=== PATIENT | female | born 1970 | race Caucasian/White ===

== ENCOUNTER 2021-02-07 13:42 | Inpatient (IN) | payer BC, OTHER ==
[~2021-02-07] VITALS: Ht 175.3 cm; Wt 134.0 kg
[2021-02-07] MEDS ORDERED: KETOROLAC 30 MG/ML VIAL IVP STA (14:25)
[2021-02-07] MEDS ORDERED: fentaNYL INJ 100 MCG/2 ML AMP IVP STA (14:26)
[2021-02-07 14:30] LABS: HEMATOCRIT 41 % (35-52); HEMOGLOBIN 14.4 g/dL (11.5-16.0); MEAN CORPUSCULAR HEMOGLOBIN 30 pg (25-34); MEAN CORPUSCULAR HGB CONC 35 g/dL (32-36); MEAN CORPUSCULAR VOLUME 86 fL (80-99); MEAN PLATELET VOLUME 9.7 fL (9.0-12.2); PLATELET COUNT 220 10^3/uL (130-400); WHITE BLOOD COUNT 10.9 10^3/uL (4.3-11.0)
[2021-02-07 14:31] LABS: BASOPHILS % (AUTO) 0 % (0-10); EOSINOPHILS % (AUTO) 0 % (0-10); LYMPHOCYTES % (AUTO) 9 % (12-44); MONOCYTES # (AUTO) 0.4 X 10^3 (0.0-1.0); MONOCYTES % (AUTO) 4 % (0-12); NEUTROPHILS # (AUTO) 9.4 X 10^3 (1.8-7.8); NEUTROPHILS % (AUTO) 86 % (42-75)
[2021-02-07] MEDS ORDERED: ONDANSETRON 4 MG/2 ML (SDV) Z0FRAN ONE (14:41)
[2021-02-07 14:42] LABS: ALBUMIN 4.3 GM/DL (3.2-4.5); BILIRUBIN,TOTAL 0.5 MG/DL (0.1-1.0); CREATININE SERUM 0.67 MG/DL (0.60-1.30); POTASSIUM 3.7 MMOL/L (3.6-5.0); TOTAL PROTEIN 7.8 GM/DL (6.4-8.2)
--- NOTE | 2021-02-07 14:46 | Diagnostic Imaging Report ---
CT ABDOMEN/PELVIS WO TECHNIQUE: Unenhanced CT imaging of the abdomen and pelvis was performed. 2-D reformats are created and submitted for interpretation. Automatic exposure controls were utilized to optimize patient dose. INDICATION: Left flank pain. COMPARISON: None available. FINDINGS: Evaluation of the abdominal viscera is mildly limited without contrast. Lower chest: The lung bases are clear. No pericardial or pleural effusion. Peritoneum: No free intraperitoneal air or fluid. Liver and biliary system: Unenhanced liver is normal. The gallbladder is normal. No biliary duct dilation. Spleen and Pancreas: Spleen is normal. Unenhanced pancreas is grossly normal. Adrenals: Low-attenuation nodule in the left adrenal gland is most likely a benign adenoma. Right adrenal gland is normal. tract: No renal or ureteral calculi. No obstructive uropathy. Urinary bladder is decompressed, limiting assessment. There is a very large cystic mass arising from the midline just above the uterus and extends cranially into the abdominal cavity. This mass measures 22 x 14 x 12 cm, and there are no internal septations or mural nodules appreciated. There is a likely ovarian tissue in both adnexa. Uterus is normal in appearance. GI tract: Stomach is decompressed. No bowel obstruction. Sigmoid colon diverticulosis without diverticulitis. Normal appendix. Vasculature and Lymph nodes: Normal caliber aorta. No abdominal or pelvic lymphadenopathy. Musculoskeletal: No concerning osseous lesion. IMPRESSION: 1. No urinary tract calculi or obstructive uropathy. 2. 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 Gynecology consultation is advised for management options. Dictated by: Dictated on workstation # [id number]
[2021-02-07 14:51] LABS: BILIRUBIN,URINE NEGATIVE (NEGATIVE); CLARITY,URINE CLOUDY; GLUCOSE, URINE (UA) NEGATIVE (NEGATIVE); KETONES,URINE TRACE (NEGATIVE); LEUKOCYTE ESTERASE ,URINE TRACE (NEGATIVE); NITRITE,URINE NEGATIVE (NEGATIVE); PROTEIN,URINE TRACE (NEGATIVE)
[2021-02-07 15:02] LABS: AMPHETAMINE SCREEN, URINE NEGATIVE (NEGATIVE); BARBITURATE SCREEN URINE NEGATIVE (NEGATIVE); BENZODIAZEPINES SCREEN URINE NEGATIVE (NEGATIVE); CANNABINOID SCREEN, URINE NEGATIVE (NEGATIVE); COCAINE SCREEN URINE NEGATIVE (NEGATIVE); METHADONE STAT NEGATIVE (NEGATIVE); METHAMPHETAMINE SCREEN URINE S NEGATIVE (NEGATIVE); OPIATE SCREEN URINE NEGATIVE (NEGATIVE); OXYCODONE STAT NEGATIVE (NEGATIVE); PROPOXYPHENE STAT NEGATIVE (NEGATIVE); TRICYCLIC ANTIDEPRESSANTS SCRE NEGATIVE (NEGATIVE)
[2021-02-07 15:06] LABS: BACTERIA,URINE NEGATIVE /HPF; COLOR,URINE AMBER; RBC,URINE 50-100 /HPF; SQUAMOUS EPITHELIAL CELL,UR 0-2 /HPF; WBC,URINE 0-2 /HPF
[2021-02-07 15:16] LABS: BAND NEUTROPHILS 3 %; BASOPHILS % (MANUAL) 1 %; EOSINOPHILS % (MANUAL) 0 %; LYMPHOCYTES % (MANUAL) 7 %; MONOCYTES % (MANUAL) 3 %; NEUTROPHILS % (MANUAL) 86 %
[2021-02-07] MEDS ORDERED: morphine INJ 10 MG/ML 1ML (SYR OR VIAL) IVP STA ×2 (15:28→16:20)
[2021-02-07] MEDS ORDERED: ONDANSETRON 4 MG/2 ML (SDV) Z0FRAN IVP STA (15:28)
[2021-02-07] MEDS ORDERED: ONDANSETRON 4 MG/2 ML (SDV) Z0FRAN IVP ONE (16:00)
--- NOTE | 2021-02-07 16:32 | ED General ---
General Chief Complaint: Back Problems Stated Complaint: LT FLANK PAIN Nursing Triage Note: Patient reports she has a urinary tract infection diagnosed at walk-in [facility], states she has been taking tramadol and tylenol for pain without relief. She reports her pain in her left groin that radiates to her left flank worsened this morning. Source of Information: Patient History of Present Illness Date Seen by Provider: Feb 07, 2021 Time Seen by Provider: 15:08 Initial Comments 50-year-old female presenting with complaints of left flank pain that started this morning. She states that she had severe pain in her back and left flank that prompted her to go to the urgent care. She was told that she had a urinary tract infection at the [facility]-in [facility]. She was given a Toradol shot and advised to take tramadol and Tylenol for pain but states that it was not helping. She reports the pain radiates into her left groin and her left flank. It is worsened since this morning. She denies having pain like this in the past. She has nausea but no vomiting. She denies any change in her bowels. She is c urrently on her normal menstrual period. she denies any fever or chills. Timing/Duration: 12 Hours Severity: Severe Associated Systoms: No Chest Pain, No Cough, No Diaphoresis, No Fever/Chills, No Headaches, No Loss of Appetite, No Malaise; Nausea/Vomiting (nausea but no emesis); No Seizure, No Shortness of Air, No Syncope, No Weakness Allergies and Home Medications Allergies Coded Allergies: No Known Drug Allergies (Unverified , 02/07/21) Patient Home Medication List Home Medication List Reviewed: Yes Review of Systems Review of Systems Constitutional: No chills, No fever EENTM: no symptoms reported Respiratory: no symptoms reported Cardiovascular: no symptoms reported Gastrointestinal: see HPI Genitourinary: see HPI Musculoskeletal: back pain (left flank pain since this am) Skin: no symptoms reported Psychiatric/Neurological: Denies Numbness, Denies Paresthesia Past Rcnhxkw-Dxppmc-Qclywu Hx Patient Social History Tobacco Use?: No Substance use?: No Alcohol Use?: No Pt feels they are or have been: No Past Medical History Surgeries: No Physical Exam Vital Signs Vital Signs - First Documented 02/07/21 13:54 Temp 36.9 Pulse 91 Resp 20 B/P (MAP) 176/93 (120) Pulse Ox 97 O2 Delivery Room Air Capillary Refill : Less Than 3 Seconds Height, Weight, BMI Height: '" Weight: lbs. oz. kg; 43.00 BMI Method: General Appearance: Anxious, Moderate Distress, Obese Eyes: Bilateral Eye PERRL, Bilateral Eye EOMI Neck: Full Range of Motion, Normal Inspection, Non Tender, Supple Respiratory: Chest Non Tender, Lungs Clear, Normal Breath Sounds, No Accessory Muscle Use, No Respiratory Distress Cardiovascular: Regular Rate, Rhythm, Normal Peripheral Pulses Gastrointestinal: Normal Bowel Sounds, No Pulsatile Mass, Soft; No Distended, No Guarding, No Rebound; Tenderness (left flank wrapping around to anterior abdomen) Rectal: Deferred Back: CVA Tenderness (L); No Vertebral Tenderness Extremity: Normal Capillary Refill, Normal Inspection, No Pedal Edema Neurologic/Psychiatric: Alert, Oriented x3, No Motor/Sensory Deficits, coater slate II- XII Norm as Tested, Other (anxious) Skin: Normal Color, Warm/Dry Progress/Results/Core Measures Suspected Sepsis SIRS Temperature: Pulse: 91 Respiratory Rate: 20 Laboratory Tests 02/07/21 14:10: White Blood Count 10.9 Blood Pressure 176 /93 Mean: 120 Laboratory Tests 02/07/21 14:10: Creatinine 0.67, Platelet Count 220, Total Bilirubin 0.5 Results/Orders Lab Results Laboratory Tests Test 02/07/21 13:54 02/07/21 14:10 Range/Units Urine Color SERGIO H Urine Clarity CLOUDY Urine pH 7.0 5-9 Urine Specific Orr 1.020 1.016-1.022 Urine Protein TRACE H NEGATIVE Urine Glucose (UA) NEGATIVE NEGATIVE Urine Ketones TRACE H NEGATIVE Urine Nitrite NEGATIVE NEGATIVE Urine Bilirubin NEGATIVE NEGATIVE Urine Urobilinogen 0.2 < = 1.0 MG/DL Urine Leukocyte Esterase TRACE H NEGATIVE Urine RBC (Auto) 3+ H NEGATIVE Urine RBC 50-100 H /HPF Urine WBC 0-2 /HPF Urine Squamous Epithelial Cells 0-2 /HPF Urine Crystals NONE /LPF Urine Bacteria NEGATIVE /HPF Urine Casts NONE /LPF Urine Mucus SMALL H /LPF Urine Culture Indicated NO Urine Opiates Screen NEGATIVE NEGATIVE Urine Oxycodone Screen NEGATIVE NEGATIVE Urine Methadone Screen NEGATIVE NEGATIVE Urine Propoxyphene Screen NEGATIVE NEGATIVE Urine Barbiturates Screen NEGATIVE NEGATIVE Ur Tricyclic Antidepressants Screen NEGATIVE NEGATIVE Urine Phencyclidine Screen NEGATIVE NEGATIVE Urine Amphetamines Screen NEGATIVE NEGATIVE Urine Methamphetamines Screen NEGATIVE NEGATIVE Urine Benzodiazepines Screen NEGATIVE NEGATIVE Urine Cocaine Screen NEGATIVE NEGATIVE Urine Cannabinoids Screen NEGATIVE NEGATIVE White Blood Count 10.9 4.3-11.0 10^3/uL Red Blood Count 4.77 3.80-5.11 10^6/uL Hemoglobin 14.4 11.5-16.0 g/dL Hematocrit 41 35-52 % Mean Corpuscular Volume 86 80-99 fL Mean Corpuscular Hemoglobin 30 25-34 pg Mean Corpuscular Hemoglobin Concent 35 32-36 g/dL Red Cell Distribution Width 12.6 10.0-14.5 % Platelet Count 220 130-400 10^3/uL Mean Platelet Volume 9.7 9.0-12.2 fL Immature Granulocyte % (Auto) 0 % Neutrophils (%) (Auto) 86 H 42-75 % Lymphocytes (%) (Auto) 9 L 12-44 % Monocytes (%) (Auto) 4 0-12 % Eosinophils (%) (Auto) 0 0-10 % Basophils (%) (Auto) 0 0-10 % Neutrophils # (Auto) 9.4 H 1.8-7.8 X 10^3 Lymphocytes # (Auto) 1.0 1.0-4.0 X 10^3 Monocytes # (Auto) 0.4 0.0-1.0 X 10^3 Eosinophils # (Auto) 0.0 0.0-0.3 10^3/uL Basophils # (Auto) 0.0 0.0-0.1 10^3/uL Immature Granulocyte # (Auto) 0.0 0.0-0.1 10^3/uL Neutrophils % (Manual) 86 % Lymphocytes % (Manual) 7 % Monocytes % (Manual) 3 % Eosinophils % (Manual) 0 % Basophils % (Manual) 1 % Band Neutrophils 3 % Sodium Level 139 135-145 MMOL/L Potassium Level 3.7 3.6-5.0 MMOL/L Chloride Level 100 98-107 MMOL/L Carbon Dioxide Level 23 21-32 MMOL/L Anion Gap 16 H 5-14 MMOL/L Blood Urea Nitrogen 13 7-18 MG/DL Creatinine 0.67 0.60-1.30 MG/DL Estimat Glomerular Filtration Rate 93 BUN/Creatinine Ratio 19 Glucose Level 187 H 70-105 MG/DL Calcium Level 9.0 8.5-10.1 MG/DL Corrected Calcium 8.8 8.5-10.1 MG/DL Total Bilirubin 0.5 0.1-1.0 MG/DL Aspartate Amino Transf (AST/SGOT) 24 5-34 U/L Alanine Aminotransferase (ALT/SGPT) 19 0-55 U/L Alkaline Phosphatase 45 40-136 U/L Total Protein 7.8 6.4-8.2 GM/DL Albumin 4.3 3.2-4.5 GM/DL Lipase 20 8-78 U/L My Orders Orders - KATHIE HERNANDEZ MD Ua Culture If Indicated (02/07/21 13:52) Drug Screen Stat (Urine) (02/07/21 13:52) Comprehensive Metabolic Panel (02/07/21 14:02) Lipase (02/07/21 14:02) Ed Iv/Invasive Line Start (02/07/21 14:02) Cbc With Automated Diff (02/07/21 14:02) Ct Abdomen/Pelvis Wo (02/07/21 14:02) Ketorolac Injection (Toradol Injection) (02/07/21 14:25) Fentanyl Inj (Sublimaze Injection) (02/07/21 14:26) Manual Differential (02/07/21 14:10) Ondansetron Injection (Zofran Injectio (02/07/21 14:41) Morphine Injection (Morphine Injection (02/07/21 15:28) Ondansetron Injection (Zofran Injectio (02/07/21 15:28) Ondansetron Injection (Zofran Injectio (02/07/21 16:00) Morphine Injection (Morphine Injection (02/07/21 16:20) Medications Given in ED Current Medications Medications Dose Ordered Sig/Luana Route Start Time Stop Time Status Last Admin Dose Admin Ondansetron HCl 4 mg ONCE ONCE IVP 02/07/21 16:00 02/07/21 16:01 DC 02/07/21 15:44 4 MG Ondansetron HCl 4 mg STK-MED ONCE .ROUTE 02/07/21 14:41 02/07/21 14:42 DC 02/07/21 14:49 4 MG Vital Signs/I&O 02/07/21 02/07/21 13:54 17:09 Temp 36.9 Pulse 91 85 Resp 20 18 B/P (MAP) 176/93 (120) 161/86 Pulse Ox 97 98 O2 Delivery Room Air Room Air Capillary Refill : Less Than 3 Seconds Blood Pressure Mean: 120 Progress Note #1: Progress Note With her complaint of severe pain and that she is pacing unable to find a comfortable position will obtain blood work as well as urine and CT scan to [place] for possible kidney stone. Try Toradol with fentanyl for pain. Differential diagnosis includes diverticulitis, kidney stone, pyelonephritis, urinary tract infection, ovarian cyst Progress Note #2: Progress Note Patient had no significant improvement in her pain with fentanyl and Toradol. Her labs appeared stable without acute significant abnormality. She did have findings on the CT scan of a very large mass that radiology felt was coming off of the ovaries. They recommended gynecology consult. We will give morphine for pain to see if that does better than the fentanyl. Progress Note #3: Progress Note Discussed with Dr. Moncada for gynecology from [facility]. She recommended getting ultrasound to evaluate blood flow to the ovaries and the mass. She also suggested if we could get pain control and discharged the patien t she could see the patient in the clinic tomorrow. Ultimately she would need surgery to evaluate and remove the large cystic mass. Unfortunately the die technician was not available here at [facility]. Also the patient's pain was still not controlled despite fentanyl, Toradol, morphine. As she was still having uncontrolled pain she felt that she would not be able to manage things at home or have the pain tolerable where she could manage things at home. Discussed again with Dr. Teresita Moncada and she agreed to do an observation admission for the patient. Keep her n.p.o. after midnight and anticipate surgery for the cystic mass tomorrow. Diagnostic Imaging Diagonstic Imaging: CT Plain Films/CT/US/NM/MRI: abdomen, pelvis Comments [facility] [address] [place], [place] NAME: JORGE STORY [facility] REC#: [id number] PT STATUS: REG ER : 1970 PHYSICIAN: KATHIE HERNANDEZ MD ADMIT DATE: 02/07/21/ER FS Signed Date of Exam:02/07/21 CT ABDOMEN/PELVIS WO CT ABDOMEN/PELVIS WO TECHNIQUE: Unenhanced CT imaging of the abdomen and pelvis was performed. 2-D reformats are created and submitted for interpretation. Automatic exposure controls were utilized to optimize patient dose. INDICATION: Left flank pain. COMPARISON: None available. FINDINGS: Evaluation of the abdominal viscera is mildly limited without contrast. Lower chest: The lung bases are clear. No pericardial or pleural effusion. Peritoneum: No free intraperitoneal air or fluid. Liver and biliary system: Unenhanced liver is normal. The gallbladder is normal. No biliary duct dilation. Spleen and Pancreas: Spleen is normal. Unenhanced pancreas is grossly normal. Adrenals: Low-attenuation nodule in the left adrenal gland is most likely a benign adenoma. Right adrenal gland is normal. tract: No renal or ureteral calculi. No obstructive uropathy. Urinary bladder is decompressed, limiting assessment. There is a very large cystic mass arising from the midline just above the uterus and extends cranially into the abdominal cavity. This mass measures 22 x 14 x 12 cm, and there are no internal septations or mural nodules appreciated. There is a likely ovarian tissue in both adnexa. Uterus is normal in appearance. GI tract: Stomach is decompressed. No bowel obstruction. Sigmoid colon diverticulosis without diverticulitis. Normal appendix. Vasculature and Lymph nodes: Normal caliber aorta. No abdominal or pelvic lymphadenopathy. Musculoskeletal: No concerning osseous lesion. IMPRESSION: 1. No urinary tract calculi or obstructive uropathy. 2. 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 Gynecology consultation is advised for management options. Dictated by: Dictated on workstation # [id number] Dict: 02/07/21 1440 Trans: 02/07/21 1623 [id number] Interpreted by: MERLIN ZHANG MD Electronically signed by: MERLIN ZHANG MD 02/07/21 1623 Reviewed: Reviewed by Mn Departure Communication (Admissions) Time/Spoke to Admitting Phy: 16:[address] Teresita Moncada with gynecology from [facility]. Since unable to control pain or obtain ultrasound tonight to evaluate blood flow will admit as observation patient for pain control and plan ultrasound and exploratory surgery/removal likely tomorrow. She may eat tonight but NPO after midnight Impression Primary Impression: Ovarian cystic mass Qualified Codes: N83.209 - Unspecified ovarian cyst, unspecified side Additional Impressions: Acute left flank pain Intractable pain Disposition: 30 STILL A PATIENT Condition: Stable Admissions Decision to Admit Reason: Admit from ER (General) Decision to Admit/Date: Feb 07, 2021 Time/Decision to Admit Time: 16:26 Departure-Patient Inst. Referrals: NATALY WARREN APRN (PCP) Primary Care Physician KATHIE HERNANDEZ MD Feb 07, 2021 16:32
[2021-02-07 18:20] VITALS: BP 171/100
[2021-02-07] MEDS ORDERED: ACETAMINOPHEN 500 MG TAB (TYLENOL) PO PRN (18:30)
[2021-02-07] MEDS ORDERED: ONDANSETRON 4 MG/2 ML (SDV) Z0FRAN IVP PRN (19:00)
--- NOTE | 2021-02-07 19:01 | History & Physical ---
History of Present Illness History of Present Illness Reason for visit/HPI This is a 50-year-old 5 para 4 female who presented to [facility] yesterday with complaint of worsening left flank and lower abdominal pain over the past day. She was concerned about a kidney stone. However she had no urinary complaints no nausea no vomiting no constipation no diarrhea. No fever. The pain is gotten progressively worse. While at [facility] emergency room, she did not have improvement in her pain with Toradol and multiple doses of different narcotics. The CT scan that was done ruled out a kidney stone but found a very large dense mass in the pelvis suggestive of a serous or mucinous cystadenoma of the ovary. Last menstrual period is current. She states that her periods have been regular but have changed in nature, Summer's shorter summer longer. She has a history of 2 vaginal deliveries one miscarriage and then a vaginal delivery/ for twins. 6 weeks later she had a tubal ligation. She has completed childbearing. She has no other previous history of surgeries. She does have a history of chronic hypertension. Her first was at age 17 and she had severe hypertension during that . She is on multiple antihypertensive medications that are not controlling her blood pressure. On admission today her blood pressure was 170/110 but she has not taken her blood pressure medicines today because she is not felt well. We will give her IV antihypertensives now. She currently is taking hydrochlorothiazide, losartan, amlodipine, and metoprolol. She is also on medications for lipids. But otherwise no chronic medical problems Date of Admission Feb 07, 2021 at 18:13 Date Seen by a Provider: Feb 08, 2021 Time Seen by a Provider: 19:00 I consulted on this patient on 02/07/21 19:01 Attending Physician Comfort Moncada DO Admitting Physician Betty Ayala Aprn Consult Allergies and Home Medications Allergies Coded Allergies: No Known Drug Allergies (Unverified , 02/07/21) Patient Home Medication List Home Medication List Reviewed: No Past Cnlqpaq-Uicwrl-Mtounn Hx Patient Social History Marrital Status: Number of Children: 4 Number of living children: 4 Employed/Student: employed Tobacco Use?: No Substance use?: No Alcohol Use?: No Pt feels they are or have been: No Current Status status: No Advance Directives: No Communicates: Verbally Primary Language: Macedonian Preferred Spoken Language: Macedonian Past Medical History Surgeries: Section (d&C, BL tubal ligation) Hypertension Family Medical History Heart Disease, Hypertension Review of Systems Constitutional: no symptoms reported EENTM: see HPI Respiratory: no symptoms reported Cardiovascular: no symptoms reported Gastrointestinal: LUQ, LLQ, abdominal pain (LLQ); No constipation, No diarrhea; loss of appetite, nausea; No vomiting Genitourinary: no symptoms reported Control/STD Prophylaxis: Other (BTL) Musculoskeletal: back pain Skin: no symptoms reported Psychiatric/Neurological: No Symptoms Reported All Other Systems Reviewed Negative Unless Noted: Yes Physical Exam Vital Signs Vital Signs - First Documented 02/07/21 13:54 Temp 36.9 Pulse 91 Resp 20 B/P (MAP) 176/93 (120) Pulse Ox 97 O2 Delivery Room Air Capillary Refill : Less Than 3 Seconds Height, Weight, BMI Height: '" Weight: lbs. oz. kg; 43.00 BMI Method: General Appearance: Anxious, Moderate Distress Respiratory: Chest Non Tender, Lungs Clear, Normal Breath Sounds Cardiovascular: Regular Rate, Rhythm, No Edema Gastrointestinal: Distended; No Guarding, No Rebound; Tenderness, Other Assessment/Plan Assessment and Plan Pelvic mass, suspect ovarian serous or mucinous cystadenoma with possible torsion. Due to the nature of the CT scan it is unable to tell for certain if this is ovarian versus uterine versus something else in the abdomen but the high suspicion is for ovarian. We will admit her for Admission Diagnosis Admission Status: COMFORT Cox DO Feb 07, 2021 19:01
[2021-02-07] MEDS: fentaNYL INJ 100 MCG/2 ML AMP IVP PRN (20:51)
[2021-02-07 21:00] VITALS: BP 174/102
[2021-02-07] MEDS ORDERED: LABETALOL HCL 20 MG/4 ML VIAL ONE (21:08)
[2021-02-07] MEDS ORDERED: LABETALOL HCL 20 MG/4 ML VIAL IV ONE (21:15)
[2021-02-07 22:00] VITALS: BP 133/98
[2021-02-08] VITALS (14 sets, daily range): BP systolic 123–157; BP diastolic 59–97
[2021-02-08] MEDS: fentaNYL INJ 100 MCG/2 ML AMP IVP PRN (00:54)
[2021-02-08] MEDS ORDERED: LIDOCAINE PF 2% 5 ML (XYLOCAINE) VIAL ONE (07:18)
[2021-02-08] MEDS ORDERED: proPOfol 200 MG/20 ML (DIPRIVAN) VIAL IV ONE (07:18)
[2021-02-08] MEDS ORDERED: GLYCOPYRROLATE 0.2 MG/ML (ROBINUL) 2 ML VIAL ONE (07:18)
[2021-02-08] MEDS ORDERED: ROCURONIUM 50 MG/5 ML (ZEMURON) VIAL IV ONE ×2 (07:18→09:59)
[2021-02-08] MEDS ORDERED: fentaNYL INJ 100 MCG/2 ML AMP ONE (07:18)
[2021-02-08] MEDS ORDERED: NEOSTIGMINE 3 MG/3 ML VIAL ONE (07:18)
[2021-02-08] MEDS ORDERED: ONDANSETRON 4 MG/2 ML (SDV) Z0FRAN ONE (07:18)
[2021-02-08] MEDS ORDERED: MIDAZOLAM 2 MG/2 ML (VERSED) VIAL ONE (07:19)
[2021-02-08] MEDS ORDERED: LIDOCAINE/EPI 1%-1:100,000 (XYLOCAINE) 20ML ONE (07:19)
--- NOTE | 2021-02-08 07:32 | Progress Note ---
Subjective Date Seen by a Provider: Feb 08, 2021 Time Seen by a Provider: 07:00 Subjective/Events-last exam The patient states that the pain is somewhat better but she still is in a significant amount of pain despite narcotics. We will plan laparotomy with probable left salpingo-oophorectomy and total abdominal hysterectomy with right salpingo-oophorectomy with other indicated procedures. Ultrasound is pending but it is likely that this is ovarian however I cannot rule out torsion at this point. The risks of the procedure including bleeding infection injury to bowel bladder and ureter has been explained to the patient and she understands these risks she knows that she will be unable to bear children. Proper consents of been obtained and we will proceed with surgery this morning. Objective Exam Vital Signs Date Time Temp Pulse Resp B/P (MAP) Pulse Ox O2 Delivery O2 Flow Rate FiO2 02/08/21 04:00 37.0 105 18 123/59 (80) 94 Room Air 02/08/21 00:00 36.7 107 18 138/80 (99) 92 Room Air 02/07/21 22:00 98 133/98 (110) 02/07/21 21:00 36.6 105 18 174/102 (126) 96 Room Air 02/07/21 18:20 36.6 100 16 171/100 (123) 96 Room Air 02/07/21 17:09 85 18 161/86 98 Room Air 02/07/21 13:54 36.9 91 20 176/93 (120) 97 Room Air Capillary Refill : Less Than 3 Seconds General Appearance: Moderate Distress Results Lab Laboratory Tests 02/07/21 13:54: Urine Color AMBERH, Urine Clarity CLOUDY, Urine pH 7.0, Urine Specific Brandon 1.020, Urine Protein TRACEH, Urine Glucose (UA) NEGATIVE, Urine Ketones TRACEH, Urine Nitrite NEGATIVE, Urine Bilirubin NEGATIVE, Urine Urobilinogen 0.2, Urine Leukocyte Esterase TRACEH, Urine RBC (Auto) 3+H, Urine RBC 50-100H, Urine WBC 0- 2, Urine Squamous Epithelial Cells 0-2, Urine Crystals NONE, Urine Bacteria NEGATIVE, Urine Casts NONE, Urine Mucus SMALLH, Urine Culture Indicated NO, Urine Opiates Screen NEGATIVE, Urine Oxycodone Screen NEGATIVE, Urine Methadone Screen NEGATIVE, Urine Propoxyphene Screen NEGATIVE, Urine Barbiturates Screen NEGATIVE, Ur Tricyclic Antidepressants Screen NEGATIVE, Urine Phencyclidine Screen NEGATIVE, Urine Amphetamines Screen NEGATIVE, Urine Methamphetamines Screen NEGATIVE, Urine Benzodiazepines Screen NEGATIVE, Urine Cocaine Screen NEGATIVE, Urine Cannabinoids Screen NEGATIVE 02/07/21 14:10: White Blood Count 10.9, Red Blood Count 4.77, Hemoglobin 14.4, Hematocrit 41, Mean Corpuscular Volume 86, Mean Corpuscular Hemoglobin 30, Mean Corpuscular Hemoglobin Concent 35, Red Cell Distribution Width 12.6, Platelet Count 220, Mean Platelet Volume 9.7, Immature Granulocyte % (Auto) 0, Neutrophils (%) (Auto) 86H, Lymphocytes (%) (Auto) 9L, Monocytes (%) (Auto) 4, Eosinophils (%) (Auto) 0, Basophils (%) (Auto) 0, Neutrophils # (Auto) 9.4H, Lymphocytes # (Auto) 1.0, Monocytes # (Auto) 0.4, Eosinophils # (Auto) 0.0, Basophils # (Auto) 0.0, Immature Granulocyte # (Auto) 0.0, Neutrophils % (Manual) 86, Lymphocytes % (Manual) 7, Monocytes % (Manual) 3, Eosinophils % (Manual) 0, Basophils % (Manual) 1, Band Neutrophils 3, Sodium Level 139, Potassium Level 3.7, Chloride Level 100, Carbon Dioxide Level 23, Anion Gap 16H, Blood Urea Nitrogen 13, C reatinine 0.67, Estimat Glomerular Filtration Rate 93, BUN/Creatinine Ratio 19, Glucose Level 187H, Calcium Level 9.0, Corrected Calcium 8.8, Total Bilirubin 0.5, Aspartate Amino Transf (AST/SGOT) 24, Alanine Aminotransferase (ALT/SGPT) 19, Alkaline Phosphatase 45, Total Protein 7.8, Albumin 4.3, Lipase 20 Assessment/Plan Assessment/Plan Assess & Plan/Chief Complaint 1. Pelvic mass, suspect mucinous or serous cystadenoma of the ovary versus ovarian torsion versus pelvic mass. 2. Intractable pain somewhat improved. Plan is as above. Clinical Quality Measures Admission Status Admission Dx Pelvic mass, suspect ovarian serous or mucinous cystadenoma with possible torsion. Due to the nature of the CT scan it is unable to tell for certain if this is ovarian versus uterine versus something else in the abdomen but the high suspicion is for ovarian. We will admit her for COMFORT VICK DO Feb 08, 2021 07:32
[2021-02-08] MEDS ORDERED: ceFAZolin 2 GM IV Premixed 50 ML IV ONE (07:45)
[2021-02-08] MEDS: LACTATED RINGERS 1,000 ML IV PRN ×2 (07:47→08:50)
[2021-02-08] MEDS ORDERED: ceFAZolin 2 GM IV Premixed 50 ML ONE (07:50)
[2021-02-08] MEDS ORDERED: PATIENT MAY USE OWN MEDS, ALL MC SCH (08:15)
[2021-02-08] MEDS ORDERED: ONDANSETRON 4 MG/2 ML (SDV) Z0FRAN IVP PRN ×2 (08:15→10:45)
[2021-02-08] MEDS ORDERED: morphine INJ 4 MG/ML 1 ML (VIAL/SYRINGE) IV PRN (08:15)
[2021-02-08] MEDS ORDERED: NALOXONE 0.4 MG/ML 1 ML (NARCAN) VIAL IV PRN (08:15)
[2021-02-08] MEDS ORDERED: ESMOLOL 100 MG/10 ML (BREVIBLOC) VIAL ONE (08:19)
[2021-02-08] MEDS ORDERED: HYDROmorphone 2 MG/ML VIAL (DILAUDID) ONE ×2 (08:35→10:55)
--- NOTE | 2021-02-08 08:36 | Diagnostic Imaging Report ---
PROCEDURE: US PELVIC (NON OB) TECHNIQUE: Multiple real-time grayscale images were obtained over the pelvis in various projections transabdominally. INDICATION: Adnexal cystic mass seen on previous CT. COMPARISON: CT from 02/07/2021 FINDINGS: Uterus is anteverted and measures 12.2 cm in length by 8.2 cm in AP dimension by 7 cm transversely. No suspicious myometrial masses are seen. Endometrial stripe is not well visualized. Visualized portions of the cervix are unremarkable. There is no free fluid. Ovaries are not definitively seen. There is however a large anechoic cystic structure, which appears to originate from the right adnexa and extends across midline into the left. It measures 22 x 18 x 13 cm. IMPRESSION: 1. Large, but otherwise anechoic simple appearing cyst, which again appears to arise from the right adnexa. Exact etiology remains indeterminate, but ovarian origin is suspected. Due to its size, surgical consultation is recommended. Dictated by: Dictated on workstation # [id number]
[2021-02-08] MEDS ORDERED: ESTRADIOL 0.1 MG PATCH (CLIMARA) TOP SCH (09:00)
[2021-02-08] MEDS ORDERED: BUPIVACAINE 0.5% 30 ML (SENSORCAINE) VIAL ONE (09:17)
[2021-02-08] MEDS: LACTATED RINGERS 1,000 ML IV SCH ×3 (10:10→20:17)
--- NOTE | 2021-02-08 10:25 | Operative Report ---
Operative Report Date of Procedure/Surgery Feb 08, 2021 Surgeon (s) COMFORT VICK DO [employer] (s): NA Post-Operative Diagnosis left adnexal/ovarian cyst/mass Left torsion right ovarian cyst Procedure Performed TRINH-BSO, exploratory laparotomy drainage of left ovarian cyst/cytology Description of Procedure Anesthesia Type: General Estimated blood loss (mL): 250 ml Specimen(s) collected/removed uterus tubes and ovaries cystic/peritoneal fluid (cyst began leaking while doing the pelvic fluid, so unable to differentiate with cytology specimen) Description of the Procedure With informed consent the patient was taken to the operating room and general anesthetic was found to be adequate. The patient is placed in the dorsal lithotomy position, and an adequate pelvic examination is performed with the p atient under general anesthesia. The pelvic mass could not be completely appreciated with the patient awake but now I could palpate a pelvic mass in the upper pelvis up to the umbilicus but cannot differentiate which side it was originating. It felt to be almost transverse in presentation and about the size of a large cantaloupe. A Prabhakar catheter is placed in the bladder and connected to straight drainage. A midline skin incision was made from the umbilicus to the pubic bone with a scalpel. This was carried through to the underlying layer of fascia with the same scalpel. The fascia was now incised in the midline and the rectus muscles were dissected off and blunt and sharp fashion and in the midline. The peritoneum was now entered with Metzenbaum scissors. But apparently had been nicked coming through the fascia and the cystic mass was up against the peritoneum. It was noted to be leaking fluid. I was able to grasp the area that was incised. It was very small and I was able to close it with a Adis and elevate this out of the pelvis. I then irrigated the pelvis. There did not appear to be peritoneal fluid except a small amount of spillage from the cyst. I then elevated the cyst out of the pelvis and it was noted to be torsed several times coming from the left side. The tube was then clamped at the cornu with the LigaSure and was excised allowing me to lift the cyst of the left tube and the ovary up out of the pelvis and sending this for pathology. Cystic fluid appeared clear but the periphery of the ovarian cyst appeared to be dark hemorrhagic and the left tube was very inflamed and bluish to black consistent with early necrosis of a torsed tube and ovary. At this point I inserted an extra-large Xavier retractor and the bowel is packed off with warm, moist gauze packs. The uterus was now clamped with peons to allow elevation out of the pelvis. It was noted to be very small. There was also a small approximately 2 to 3 cm simple appearing cyst arising from the right ovary. There was some small cystic lesions noted on the left round ligament and along the junction between the tube and ovary on the right. The left round ligament elevated with Adis's is placed on stretch and incised between clamps.The distal stump of the round ligament is ligated with 2- 0 suture. At this point the leaves of the broad ligament are opened both anteriorly and posteriorly. This is performed by delicate dissection with the Metzenbaum scissors and gently pushed back with a sponge stick. I then carried out the same procedure from the right ligament through the broad ligament dissection on the right side pushing back the bladder gently with a sponge stick. There was previous history of so extensive care was taken to gently dissect the bladder off the lower uterine segment. There was some bleeding but this was controlled with cautery. I now incised the posterior leaf of the broad ligament and then placed to the LigaSure across the infundibulopelvic ligament bilaterally to excise the tube and ovary on the right and control bleeding on the left. The uterus is then retracted cephalad and deviated to one side of the pelvis with the lower broad ligament on stretch. The uterine vessels is skeletonized by elevating the round ligament and dissecting the tissue away from the uterine vessels. Three Rika clamps are placed at the junction of the lower uterine segment on the uterine vessels. The same procedure is carried out on the opposite side. The posterior leaf of the broad ligament is incised down to the uterosacral ligaments and across the posterior lower uterine segment between the rectum and cervix. The uterosacral ligaments on both sides are clamped between straight Rika clamps, incised, and ligated with 0 synthetic absorbable suture. The uterus is placed on traction cephalad, and the lower uterine segment and upper vagina are palpated between the thumb and first finger of the surgeon's hand to ensure that the ligaments have been completely incised. The vagina is entered by a stab wound with a scalpel and is cut across with either a scalpel or scissors. The uterus is removed. The edges of the vagina are picked up with Rika clamps.. The cardinal and uterosacral ligaments of the opposite side have been included in the running locking 0 synthetic absorbable suture, and the vaginal cuff was closed in a running fashion. This was done from the right to the middle and into the left to the middle. And the reefing process has been completed to the midpoint of the anterior vaginal wall. At this point, the pelvis is thoroughly washed with sterile saline solution. Meticulous care is taken to ensure that hemostasis is present throughout the dissected area. Surgiflow was now placed over the vaginal cuff for hemostasis. The laparotomy sponges were now removed from the abdomen and the upper abdomen and peritoneum were palpated and found to have no abnormal implants. The tissue felt soft. The Xavier retractor was now removed. Interceed was placed between the omentum and the fascia. The peritoneum was now closed with 3-0 Vicryl in a running fashion. The fascia was closed with #1 PDS in a running fashion. The subcutaneous tissue was now brought together with interrupted stitches of 3-0 plain. The skin was closed with don. A bandage was placed. The patient was awakened and taken to the recovery room in a stable condition. Sponge lap needle and instrument counts were correct x2. Findings of the Procedure very large cyst mass with necrotic appearing tube, torsion of tube on left normal appearing uterus right simple appearing ovarian cyst Allergies and Home Medications Allergies Coded Allergies: No Known Drug Allergies (Unverified , 02/07/21) Patient Home Medication List Home Medication List Reviewed: Yes Acetaminophen (Acetaminophen) 500 Mg Tablet, 1,000 MG PO Q8HR Prescribed by: COMFORT VICK on 02/09/211952 Amlodipine Besylate (Amlodipine Besylate) 5 Mg Tablet, 5 MG PO DAILY, (Reported) Entered as Reported by: Silvana Marin on 02/08/21 102 Last Action: Continued Atorvastatin Calcium (Atorvastatin Calcium) 20 Mg Tablet, 20 MG PO DAILY, (Reported) Entered as Reported by: Silvana Marin on 02/08/21 102 Last Action: Continued Buspirone HCl (Buspirone HCl) 30 Mg Tablet, 30 MG PO DAILY, (Reported) Entered as Reported by: Silvana Marin on 02/08/21 102 Last Action: Converted Citalopram Hydrobromide (Citalopram HBr) 20 Mg Tablet, 20 MG PO DAILY PRN, (Reported) Entered as Reported by: iSlvana Marin on 02/08/211026 Last Action: Continued Estradiol (Climara Patch Weekly 0.1mg/hr) 1 Each Patch.tdwk, 0.1 MG TOP Th@09 Prescribed by: COMFORT VICK on 02/09/211952 Hydrochlorothiazide (Hydrochlorothiazide) 25 Mg Tablet, 25 MG PO DAILY, (Reported) Entered as Reported by: Silvana Marin on 02/08/211026 Last Action: Continued Ibuprofen (Ibu) 600 Mg Tablet, 600 MG PO Q6H Prescribed by: COMFORT VICK on 02/09/211952 Losartan Potassium (Losartan Potassium) 100 Mg Tablet, 100 MG PO DAILY, (Reported) Entered as Reported by: Silvana Marin on 02/08/211026 Last Action: Continued Metoprolol Succinate (Metoprolol Succinate) 100 Mg Tab.er.24h, 100 MG PO DAILY, (Reported) Entered as Reported by: Silvana Marin on 02/08/211026 Last Action: Continued Oxycodone Hcl (Oxyir Tablet) 5 Mg Tab, 5 MG PO Q4HR PRN for PAIN-SEE DOSE INSTRUCTIONS Prescribed by: COMFORT VICK on 02/09/211953 Potassium Chloride (Klor-Con M20) 20 Meq Tab.er.prt, 20 MEQ PO DAILY, (Reported) Entered as Reported by: Silvana Marin on 02/08/211026 Last Action: Continued Sennosides/Docusate Sodium (Stool Softener-Laxative Tablet) 1 Each Tablet, 2 EA PO HS Prescribed by: COMFORT VICK on 02/09/211952 Simvastatin (Simvastatin) 20 Mg Tablet, 20 MG PO DAILY, (Reported) Entered as Reported by: Silvana Marin on 02/08/211026 Last Action: Continued COMFORT VICK DO Feb 08, 2021 10:25
[2021-02-08] MEDS ORDERED: MTP100TCR PO (10:27)
[2021-02-08] MEDS ORDERED: LOSA100T57 PO (10:27)
[2021-02-08] MEDS ORDERED: HYDR25TA4 PO (10:27)
[2021-02-08] MEDS ORDERED: POTA-169 PO (10:27)
[2021-02-08] MEDS ORDERED: AMLO-250 PO (10:27)
[2021-02-08] MEDS ORDERED: BUSP30TA2 PO (10:27)
[2021-02-08] MEDS ORDERED: SIMV20TA26 PO (10:27)
[2021-02-08] MEDS ORDERED: CITA20TA9 PO (10:27)
[2021-02-08] MEDS ORDERED: ATOR20TA66 PO (10:27)
[2021-02-08] MEDS ORDERED: SEVOFLURANE (ULTANE) 15 ML INHAL SOLN ONE (10:38)
[2021-02-08] MEDS ORDERED: HYDROmorphone 2 MG/ML VIAL (DILAUDID) IV ONE (10:45)
[2021-02-08] MEDS ORDERED: morphine INJ 10 MG/ML 1ML (SYR OR VIAL) IVP ONE (10:45)
[2021-02-08] MEDS ORDERED: SUGAMMADEX 500 MG/5 ML VIAL (BRIDION) IV ONE (10:51)
[2021-02-08] MEDS ORDERED: KETOROLAC 30 MG/ML VIAL ONE (10:55)
[2021-02-08] MEDS: KETOROLAC 15 MG/ML VIAL IV SCH ×3 (11:07→23:31)
[2021-02-08] MEDS: ACETAMINOPHEN 500 MG TAB (TYLENOL) PO SCH ×2 (14:12→21:31)
[2021-02-08] MEDS: SENNA W/DOCUSATE (SENOKOT S) TABLET PO SCH (20:20)
[2021-02-09] MEDS: LACTATED RINGERS 1,000 ML IV SCH ×3 (03:55→20:09)
[2021-02-09] MEDS: KETOROLAC 15 MG/ML VIAL IV SCH (04:13)
[2021-02-09 04:15] VITALS: BP 120/62
[2021-02-09] MEDS: ACETAMINOPHEN 500 MG TAB (TYLENOL) PO SCH ×3 (06:15→21:58)
[2021-02-09 06:56] LABS: BASOPHILS % (AUTO) 0 % (0-10); EOSINOPHILS % (AUTO) 0 % (0-10); HEMATOCRIT 34 % (35-52); HEMOGLOBIN 11.3 g/dL (11.5-16.0); LYMPHOCYTES % (AUTO) 7 % (12-44); MEAN CORPUSCULAR HGB CONC 34 g/dL (32-36); MEAN CORPUSCULAR VOLUME 91 fL (80-99); MEAN PLATELET VOLUME 10.9 fL (9.0-12.2); MONOCYTES # (AUTO) 0.9 10^3/uL (0.0-1.0); MONOCYTES % (AUTO) 6 % (0-12); NEUTROPHILS # (AUTO) 12.3 10^3/uL (1.8-7.8); NEUTROPHILS % (AUTO) 86 % (42-75); PLATELET COUNT 132 10^3/uL (130-400); WHITE BLOOD COUNT 14.3 10^3/uL (4.3-11.0)
[2021-02-09 07:07] LABS: POTASSIUM 3.9 MMOL/L (3.6-5.0)
[2021-02-09 07:08] LABS: CALCIUM 8.2 MG/DL (8.5-10.1); MEAN CORPUSCULAR HEMOGLOBIN 30 pg (25-34)
[2021-02-09 07:13] LABS: CREATININE SERUM 0.71 MG/DL (0.60-1.30)
[2021-02-09] MEDS ORDERED: KCL 20 MEQ TAB (K-DUR) PO SCH (08:00)
[2021-02-09 08:45] VITALS: BP 136/68
[2021-02-09] MEDS ORDERED: busPIRone 15 MG (BUSPAR) TABLET PO SCH (09:00)
[2021-02-09] MEDS ORDERED: meTOprolol SUCCINATE 100 MG (TOPROL XL) TAB PO SCH (09:00)
[2021-02-09] MEDS ORDERED: LOSARTAN 100 MG (COZAAR) TABLET PO SCH (09:00)
[2021-02-09] MEDS ORDERED: NON-FORMULARY MEDICATION 1 EA EA (Buspirone HCl 30 MG) PO SCH (09:00)
[2021-02-09] MEDS ORDERED: SIMvastatin 20 MG (ZOCOR) TAB PO SCH (09:00)
[2021-02-09] MEDS ORDERED: amLODIPine 5 MG (NORVASC) TAB PO SCH (09:00)
--- NOTE | 2021-02-09 09:15 | Progress Note ---
Subjective Date Seen by a Provider: Feb 09, 2021 Time Seen by a Provider: 09:00 Subjective/Events-last exam Patient is awake and alert. + flatus this morning. Has eaten. Prabhakar out but hasn't voided yet. Bandage removed without difficulty. Some drainage on the bandage, serosanguinous. marked by RN but has not spread 02/08/21 02/09/21 02/09/21 23:28 04:15 08:45 Temp 37.1 36.5 36.4 Pulse 87 82 72 Resp 20 20 20 B/P (MAP) 132/62 (85) 120/62 (81) 136/68 (90) Pulse Ox 92 93 92 O2 Delivery Nasal Cannula Nasal Cannula Room Air O2 Flow Rate 3.50 3.00 02/09/21 00:00 Intake Total 700 ml Output Total 720 ml Balance -20 ml Laboratory Tests Test 02/09/21 05:35 Range/Units White Blood Count 14.3 H 4.3-11.0 10^3/uL Red Blood Count 3.71 L 3.80-5.11 10^6/uL Hemoglobin 11.3 #L 11.5-16.0 g/dL Hematocrit 34 L 35-52 % Mean Corpuscular Volume 91 80-99 fL Mean Corpuscular Hemoglobin 30 25-34 pg Mean Corpuscular Hemoglobin Concent 34 32-36 g/dL Red Cell Distribution Width 12.9 10.0-14.5 % Platelet Count 132 130-400 10^3/uL Mean Platelet Volume 10.9 9.0-12.2 fL Immature Granulocyte % (Auto) 1 % Neutrophils (%) (Auto) 86 H 42-75 % Lymphocytes (%) (Auto) 7 L 12-44 % Monocytes (%) (Auto) 6 0-12 % Eosinophils (%) (Auto) 0 0-10 % Basophils (%) (Auto) 0 0-10 % Neutrophils # (Auto) 12.3 H 1.8-7.8 10^3/uL Lymphocytes # (Auto) 1.0 1.0-4.0 10^3/uL Monocytes # (Auto) 0.9 0.0-1.0 10^3/uL Eosinophils # (Auto) 0.0 0.0-0.3 10^3/uL Basophils # (Auto) 0.0 0.0-0.1 10^3/uL Immature Granulocyte # (Auto) 0.1 0.0-0.1 10^3/uL Sodium Level 136 135-145 MMOL/L Potassium Level 3.9 3.6-5.0 MMOL/L Chloride Level 102 98-107 MMOL/L Carbon Dioxide Level 23 21-32 MMOL/L Anion Gap 11 5-14 MMOL/L Blood Urea Nitrogen 12 7-18 MG/DL Creatinine 0.71 0.60-1.30 MG/DL Estimat Glomerular Filtration Rate 87 BUN/Creatinine Ratio 17 Glucose Level 155 H 70-105 MG/DL Calcium Level 8.2 L 8.5-10.1 MG/DL Intake and Output 02/09/21 00:00 Intake Total 2750 ml Output Total 1120 ml Balance 1630 ml Intake Oral 700 ml IV Total 2050 ml Output Urine Total 870 ml Estimated Blood Loss 250 ml Objective Exam Vital Signs Date Time Temp Pulse Resp B/P (MAP) Pulse Ox O2 Delivery O2 Flow Rate FiO2 02/09/21 08:45 36.4 72 20 136/68 (90) 92 Room Air 02/09/21 04:15 36.5 82 20 120/62 (81) 93 Nasal Cannula 3.00 02/08/21 23:28 37.1 87 20 132/62 (85) 92 Nasal Cannula 3.50 02/08/21 21:13 92 Nasal Cannula 3.50 02/08/21 20:13 Nasal Cannula 3.50 02/08/21 19:55 37.3 90 20 146/75 (98) 86 Room Air 02/08/21 16:00 36.6 82 18 133/76 (95) 94 Nasal Cannula 2.00 02/08/21 12:00 36.4 82 16 133/76 (95) 94 Nasal Cannula 4.00 02/08/21 11:40 36.7 13 152/80 (104) 94 Nasal Cannula 4 02/08/21 11:40 Nasal Cannula 4 02/08/21 11:30 15 152/83 (106) 94 Nasal Cannula 4 02/08/21 11:30 Nasal Cannula 4 02/08/21 11:20 13 157/91 (113) 92 Nasal Cannula 3 02/08/21 11:15 Nasal Cannula 3 02/08/21 11:10 20 150/82 (104) 92 OxyMask 3 02/08/21 11:00 OxyMask 4 02/08/21 11:00 12 153/81 (105) 94 OxyMask 7.5 02/08/21 10:50 21 157/87 (110) 93 OxyMask 7.5 02/08/21 10:45 OxyMask 7.5 02/08/21 10:40 20 156/91 (112) 93 7.5 02/08/21 10:30 37.1 16 142/97 (112) 92 OxyMask 7.5 02/08/21 10:30 OxyMask 7.5 I & O 02/09/21 07:00 Intake Total 2750 ml Output Total 1750 ml Balance 1000 ml Capillary Refill : Less Than 3 SecondsLess Than 3 Seconds General Appearance: No Apparent Distress Respiratory: Lungs Clear, Normal Breath Sounds Cardiovascular: Regular Rate, Rhythm Gastrointestinal: normal bowel sounds (hypoactive bowel sounds), distended, tenderness (appropriately), other (Horatio intact with minimal drainage.) Results Lab Laboratory Tests 02/09/21 05:35: White Blood Count 14.3H, Red Blood Count 3.71L, Hemoglobin 11.3#L, Hematocrit 34L, Mean Corpuscular Volume 91, Mean Corpuscular Hemoglobin 30, Mean Corpuscular Hemoglobin Concent 34, Red Cell Distribution Width 12.9, Platelet Count 132, Mean Platelet Volume 10.9, Immature Granulocyte % (Auto) 1, Neutrophils (%) (Auto) 86H, Lymphocytes (%) (Auto) 7L, Monocytes (%) (Auto) 6, Eosinophils (%) (Auto) 0, Basophils (%) (Auto) 0, Neutrophils # (Auto) 12.3H, Lymphocytes # (Auto) 1.0, Monocytes # (Auto) 0.9, Eosinophils # (Auto) 0.0, Basophils # (Auto) 0.0, Immature Granulocyte # (Auto) 0.1, Sodium Level 136, Potassium Level 3.9, Chloride Level 102, Carbon Dioxide Level 23, Anion Gap 11, Blood Urea Nitrogen 12, Creatinine 0.71, Estimat Glomerular Filtration Rate 87, BUN/Creatinine Ratio 17, Glucose Level 155H, Calcium Level 8.2L Microbiology 02/07/21 MRSA Screen - Final, Complete MRSA not isolated Procedures Exp lap, TRINH-BSO washings Assessment/Plan Assessment/Plan Assess & Plan/Chief Complaint 1. left ovarian cyst with torsion, right small ovarian cyst. s/p TRINH-BSO 2. Pain improved today 3, Chronic hypertension on home oral meds. Received labetalol x 1 after surgery and esmolol prior to surgery 4. SVDs Plan routine post op. Adv diet and ambulation Plan DC likely Friday but could consider friday if meets goals. Clinical Quality Measures Admission Status Admission Dx Pelvic mass, suspect ovarian serous or mucinous cystadenoma with possible to rsion. Due to the nature of the CT scan it is unable to tell for certain if this is ovarian versus uterine versus something else in the abdomen but the high suspicion is for ovarian. We will admit her for COMFORT VICK DO Feb 09, 2021 09:15
[2021-02-09] MEDS: DOCUSATE SODIUM 100 MG (COLACE) CAP PO SCH ×2 (09:22→21:57)
[2021-02-09] MEDS ORDERED: FUROSEMIDE 20 MG (LASIX) TAB PO ONE (09:30)
[2021-02-09] MEDS ORDERED: KETOROLAC 15 MG/ML VIAL ONE (11:00)
[2021-02-09] MEDS ORDERED: KETOROLAC 30 MG/ML VIAL ONE (11:02)
[2021-02-09] MEDS: busPIRone 15 MG (BUSPAR) TABLET PO SCH (12:07)
[2021-02-09] MEDS: KCL 20 MEQ TAB (K-DUR) PO SCH (12:09)
[2021-02-09] MEDS: meTOprolol SUCCINATE 100 MG (TOPROL XL) TAB PO SCH (12:10)
[2021-02-09] MEDS: LOSARTAN 100 MG (COZAAR) TABLET PO SCH (12:11)
[2021-02-09 12:12] VITALS: BP 166/83
[2021-02-09] MEDS: SIMvastatin 20 MG (ZOCOR) TAB PO SCH (12:13)
[2021-02-09] MEDS: amLODIPine 5 MG (NORVASC) TAB PO SCH (12:13)
[2021-02-09] MEDS ORDERED: FUROSEMIDE 20 MG (LASIX) TAB ONE (12:25)
--- NOTE | 2021-02-09 14:27 | Anesthesia-General Post-Op ---
General Patient Condition Mental Status/LOC: Same as Preop Cardiovascular: Satisfactory Nausea/Vomiting: Absent Respiratory: Satisfactory Pain: Controlled Complications: Absent Post Op Complications Complications None Follow Up Care/Instructions Patient Instructions None needed. Anesthesia/Patient Condition Patient Condition Patient is doing well, no complaints, stable vital signs, no apparent adverse anesthesia problems. KIM HEART DO Feb 09, 2021 14:27
[2021-02-09 16:26] VITALS: BP 142/81
[2021-02-09] MEDS: IBUPROFEN 600 MG (MOTRIN) TAB PO SCH ×2 (17:00→18:32)
[2021-02-09] MEDS ORDERED: IBUP-844 PO (19:53)
[2021-02-09] MEDS ORDERED: OXC5T PO (19:53)
[2021-02-09] MEDS ORDERED: ACET-93 PO (19:53)
[2021-02-09] MEDS ORDERED: ESTR1PAT73 TOP (19:53)
[2021-02-09] MEDS ORDERED: SENN1TAB76 PO (19:53)
[2021-02-09 21:26] VITALS: BP 135/66
[2021-02-09] MEDS: SENNA W/DOCUSATE (SENOKOT S) TABLET PO SCH (21:57)
[2021-02-10] MEDS: LACTATED RINGERS 1,000 ML IV SCH (01:25)
[2021-02-10] MEDS: IBUPROFEN 600 MG (MOTRIN) TAB PO SCH ×3 (02:26→09:22)
[2021-02-10 02:27] VITALS: BP 138/72
[2021-02-10] MEDS: ACETAMINOPHEN 500 MG TAB (TYLENOL) PO SCH (05:26)
[2021-02-10] MEDS ORDERED: ENOXAPARIN 40 MG/0.4 ML (LOVENOX) SYR SC SCH ×2 (07:45→21:00)
[2021-02-10 09:19] VITALS: BP 134/64
[2021-02-10] MEDS: DOCUSATE SODIUM 100 MG (COLACE) CAP PO SCH (09:21)
[2021-02-10] MEDS: KCL 20 MEQ TAB (K-DUR) PO SCH (09:23)
[2021-02-10] MEDS: busPIRone 15 MG (BUSPAR) TABLET PO SCH (09:24)
[2021-02-10] MEDS: amLODIPine 5 MG (NORVASC) TAB PO SCH (09:25)
[2021-02-10] MEDS: meTOprolol SUCCINATE 100 MG (TOPROL XL) TAB PO SCH (09:26)
[2021-02-10] MEDS: SIMvastatin 20 MG (ZOCOR) TAB PO SCH (09:27)
[2021-02-10] MEDS: LOSARTAN 100 MG (COZAAR) TABLET PO SCH (09:28)
--- NOTE | 2021-02-10 10:38 | Progress Note ---
Standard Progress Note Progress Notes/Assess & Plan Date Seen by a Provider: Feb 10, 2021 Time Seen by a Provider: 10:38 Progress/Assessment & Plan S: Patient reports doing well today, and desires discharge home. She reports that her pain is well controlled with PO medications. She is tolerating PO intake, denies n/v, and is passing flatus and voiding. has not had a BM. She is ambulating without difficulty, and denies LE pain or swelling. She is not having any vaginal bleeding. O: Vital Signs 02/09/21 02/10/21 08:55 09:19 Temp 36.5 Pulse 86 Resp 16 B/P (MAP) 134/64 (87) Pulse Ox 95 O2 Delivery Room Air O2 Flow Rate 3.00 Gen: no acute distress. Patient standing at bedside Lungs: CTAB, symmetric chest rise, non-labored breathing Heart: normal rate and regular rhythm Abdomen: obese, soft. Normal bowel sounds Incision: Midline vertical abdominal incision is C/D/I. No erythema, edema, or warmth. no drainage LE: no edema, no warmth, no tenderness. Normal perfusion A/P: This is a 50 yo who is POD #2 s/p ex lap with TRINH-BSO. Patient is doing well and meeting all post-op goals. Will curtis to discharge home today if no new concerns develop -VS wnl, afebrile, pain control is adequate -hgb stable -Diet: regular -Activity: encourage ambulation -Prophylaxis: SCDs in place while in bed, Lovenox for DVt PPx while inpatient ambulate -Pathology: pending - Home meds: continue - Anticipate discharge home today YULIYA LOPEZ MD Feb 10, 2021 10:38
--- NOTE | 2021-02-10 10:44 | Discharge Inst-Simple/Standard ---
Discharge Inst-Standard Reconcile Patient Problems Problems Reviewed?: Yes Discharge Medications New, Converted or Re-Newed RX: Transmitted to Pharmacy Patient Instructions/Follow Up Plan of Care/Instructions/FU: 1) Pelvic Rest for 6 weeks; no sex, tampon use, douching, submersion (baths/pools) 2) No heavy lifting > 5-10 pounds for weeks 3) Keep all follow up appointments. Activity as Tolerated: Yes (Lifting restriction limited to 5-10 pounds. Avoid strenous activities) Discharge Diet: No Restrictions Return to [facility] For: - Return to clinic for 1 week incision check/don removal - Return for temperature >100.4 degrees, vaginal bleeding similar to menstrual period, intractable pain/nausea/vomiting, incision concerns, or any other concerns YULIYA LOPEZ MD Feb 10, 2021 10:44
--- NOTE | 2021-02-10 10:54 | Short Stay Summary ---
Discharge Summary Hospital Course Was the Problem List Reviewed?: Yes Final Diagnosis: s/p TRINH-BSO, exploratory laparotomy Hospital Course Date of Admission: Feb 08, 2021 at 10:25 Admission Diagnosis : Family Physician/Provider: Date of Discharge: 02/10/21 Discharge Diagnosis: s/p TRINH-BSO, exploratory laparotomy Hospital Course: [place] Esteves is a 50 yo who initially presented to [facility] for worsening left flank and lower abdominal pain. She was found to have a large pelvic/abdominal mass on imaging, and her pain was uncontrolled in the ED with several doses of narcotics. She was therefore admitted for pain management and surgical exploration. After further counseling, she underwent an exploratory laparotomy with total abdominal hysterectomy and bilateral salpingo-oophorectomy on 02/08/21. Surgery was otherwise uncomplicated and EBL was 250mL. Please see operative report for full details. Patient's postoperative course was uncomplicated, and she made good post-op progress. On POD#1, she had a Hgb of 11.3g/dL from 14.4g/dL preoperatively. Her pain was controlled, she was tolerating PO, and passing flatus. By POD#2, she was meeting all postoperative goals including ambulating without difficulty, tolerating a regular diet, pain controlled with oral medications, and making adequate urine output, and passing flatus. There were no incision concerns. There were no acute concerns. She desired discharge, and was discharged home on POD#2 in stable medical condition. Labs and Pending Lab Test: Microbiology 02/07/21 MRSA Screen - Final, Complete MRSA not isolated Home Meds Active Climara Patch Weekly 0.1mg/hr (Estradiol) 1 Each Patch.tdwk 0.1 Mg TOP TH@09 Stool Softener-Laxative Tablet (Sennosides/Docusate Sodium) 1 Each Tablet 2 Ea PO HS Acetaminophen 500 Mg Tablet 1,000 Mg PO Q8HR Oxyir Tablet (Oxycodone HCl) 5 Mg Tab 5 Mg PO Q4HR PRN Ibu (Ibuprofen) 600 Mg Tablet 600 Mg PO Q6H Reported Hydrochlorothiazide 25 Mg Tablet 25 Mg PO DAILY Atorvastatin Calcium 20 Mg Tablet 20 Mg PO DAILY Buspirone HCl 30 Mg Tablet 30 Mg PO DAILY Citalopram HBr (Citalopram Hydrobromide) 20 Mg Tablet 20 Mg PO DAILY PRN Losartan Potassium 100 Mg Tablet 100 Mg PO DAILY Simvastatin 20 Mg Tablet 20 Mg PO DAILY Amlodipine Besylate 5 Mg Tablet 5 Mg PO DAILY Klor-Con M20 (Potassium Chloride) 20 Meq Tab.er.prt 20 Meq PO DAILY Metoprolol Succinate 100 Mg Tab.er.24h 100 Mg PO DAILY Assessment/Pt Instructions POD#2 s/p exploratory laparotomy with TRINH-BSO 1) Pelvic Rest for 6 weeks; no sex, tampon use, douching, submersion (baths/pools) 2) No heavy lifting more than 5-10 pounds for 8 weeks 3) Return to clinicin 1 week for post-op incision check/don removal 4) Return for temperature >100.4 degrees, vaginal bleeding similar to menses, intractable pain/nausea/vomiting, incision concerns, or any other concerns 5) Keep all follow up appointments. Discharge Instructions Discharge Diet: No Restrictions Activity as Tolerated: Yes (Lifting restriction limited to 5-10 pounds. Avoid strenous activities) Discharge Physical Examination General Appearance: Alert, Oriented X3, Cooperative, No Acute Distress HEENT: EOMI Respiratory: Clear to Auscultation, Normal Air Movement Cardiovascular: Regular Rate Abdominal: Normal Bowel Sounds, Soft, Other Skin: No Rashes, No Breakdown Neuro: Normal Gait, Normal Speech Psych/Mental Status: Mental Status NL Allergies: Coded Allergies: No Known Drug Allergies (Unverified , 02/07/21) Discharge Summary Date of Admission Feb 08, 2021 at 10:25 Date of Discharge YULIYA LOPEZ MD Feb 10, 2021 10:54
== END 2021-02-10 12:06 | disposition home or self-care (01) | DRG 742 ==
LOC: ER FS 13:48 → WS 18:13 → OBSVTOIN 02-08 10:25
PROVIDERS: ADMIT Obstetrics & Gynecology; ATTEND Obstetrics & Gynecology
PROC: 0UT20ZZ Resection of Bilateral Ovaries, Open Approach (ICD-10-PCS; 2021-02-08)
PROC: 0UT70ZZ Resection of Bilateral Fallopian Tubes, Open Approach (ICD-10-PCS; 2021-02-08)
PROC: 0UT90ZZ Resection of Uterus, Open Approach (ICD-10-PCS; principal; 2021-02-08 08:04)
DX: N83.202 Unspecified ovarian cyst, left side (principal); Z68.41 Body mass index [BMI] 40.0-44.9, adult; N83.512 Torsion of left ovary and ovarian pedicle; N83.201 Unspecified ovarian cyst, right side; E66.9 Obesity, unspecified; I10 Essential (primary) hypertension; K21.9 Gastro-esophageal reflux disease without esophagitis
CPT/HCPCS: 36415; 74176; 76856; 80048; 80053; 80306; 81000; 83690; 84703; 85007; 85025; 85027; 86304; 87081; 94664; 96374; 96375; 96376; G0378